=== PATIENT | female | born 1970 | race Two or more races ===

== ENCOUNTER → 2016-11-27 | Day surgery (SDC) | payer OTHER ==
[2016-11-27] VITALS (7 sets, daily range): BP systolic 104–135; BP diastolic 56–80
[~2016-11-27] VITALS: Ht 160 cm; Wt 99.8 kg
[~2016-11-27] MED LIST: FLAX OIL1000 MG PO; LR 1000ml 1,000 ML IV SCH; LR 1000ml 1,000 ML IVLG SCH; LR 1000ml ONE; Lidocaine 1% MPF 10mg/ml 5ml ONE; MELATONIN5 M6 PO; OMEPRAZOLE40 M1 ORAL; PHENTERMINE HCL15 MG PO; PROBIOTIC1 EAC2 PO; Propofol 10mg/ml 20ml IV ONE; VITAMIN D1000 UNI1 ORAL
--- NOTE | 2016-11-27 09:05 | Anethesia Preoperative Eval ---
Anesthesia Pre-op PMH/ROS General Date of Evaluation: Nov 27, 2016 Time of Evaluation: 09:02 Anesthesiologist: Mazin ASA Score: ASA 2 Mallampati Score Class I : Soft palate, uvula, fauces, pillars visible Class II: Soft palate, uvula, fauces visible Class III: Soft palate, base of uvula visible Class IV: Only hard plate visible Mallampati Classification: Class II Surgeon: herberth Diagnosis: abdominal pain Surgical Procedure: egd/colonoscopy Anesthesia History: none Family History: no anesthesia problems Allergies: Coded Allergies: ACETAMINOPHEN (Verified Allergy, Intermediate, 11/27/16) ITCHY HYDROCODONE (Verified Allergy, Intermediate, 11/27/16) ITCHY LATEX (Verified Allergy, Mild, 11/27/16) SKIN RASH BENZONATATE (Unverified Allergy, Unknown, 11/27/16) DOXYCYCLINE (Unverified Allergy, Unknown, 11/27/16) Uncoded Allergies: DOXYCYC (Allergy, Severe, 11/27/16) SKIN RASH TESSALON (Allergy, Severe, 11/27/16) ANAPHYLACTIC SHOCK HUMMUS (Allergy, Intermediate, 11/27/16) SKIN RASH Past Medical History Cardiovascular: Denies: CAD, HTN, NE, arrhythmia, other, valve dz Pulmonary: Reports: DONALD Gastrointestinal/Genitourinary: Reports: GERD Neurologic/Psychiatric: Denies: CVA, TIA, dementia, depression/anxiety, other Endocrine: Denies: DM, hypothyroidism, other, steroids HEENT: Denies: INAJA (L), INAJA (R), cataract (L), cataract (R), glaucoma, other Hematology/Immune: Denies: DVT, anemia, bleeding disorder, other Musculoskeletal/Integumentary: Denies: DDD, DJD, OA, RA, edema, other Other: obesity PMH Narrative: GERD, obesity, anxiety PSxH Narrative: NIKHIL, c/s/, inguinal hernia repair Anesthesia Pre-op Phys. Exam Physician Exam Last Vital Signs Date Time Temp Pulse Resp B/P Pulse Ox O2 Delivery O2 Flow Rate FiO2 11/27/16 07:48 98.4 96 20 135/56 98 Room Air Constitutional: NAD Neurologic: CN 2-12 intact Cardiovascular: RRR Respiratory: CTA Gastrointestinal: S/NT/ND Airway Exam Mallampati Score: Class II MO: full ROM: full Teeth: intact Dentures: no lower, no upper CARLOS A GRAHAM D.O. Nov 27, 2016 09:05
--- NOTE | 2016-11-27 09:06 | Short Stay Surgery H&P ---
History of Present Illness History of Present Illness Chief Complaint Abdominal pains and rectal bleeding. KALEB Mathews is a 45 year old female who was admitted on for Abdominal Pain and rectal bleeding. Patient History Allergies: Coded Allergies: ACETAMINOPHEN (Verified Allergy, Intermediate, 11/27/16) ITCHY HYDROCODONE (Verified Allergy, Intermediate, 11/27/16) ITCHY LATEX (Verified Allergy, Mild, 11/27/16) SKIN RASH BENZONATATE (Unverified Allergy, Unknown, 11/27/16) DOXYCYCLINE (Unverified Allergy, Unknown, 11/27/16) Uncoded Allergies: DOXYCYC (Allergy, Severe, 11/27/16) SKIN RASH TESSALON (Allergy, Severe, 11/27/16) ANAPHYLACTIC SHOCK HUMMUS (Allergy, Intermediate, 11/27/16) SKIN RASH PAST MEDICAL HISTORY: (1) Hyperlipidemia Past Surgeries: (1) H/O abdominal hysterectomy (2) Fissure in ano (3) Hernia (4) Previous section Social History: Medication History Scheduled Cholecalciferol (Vitamin D3)* (Vitamin D*), 10,000 UNITS ORAL DAILY, (Reported) Flaxseed Oil (Flax Oil), 1,000 MG PO DA, (Reported) Lactobacillus Acidophilus (Probiotic), 1 EACH PO DA, (Reported) Melatonin (Melatonin), 5 MG PO NEEDED, (Reported) Omeprazole (Omeprazole), 40 MG ORAL DAILY, (Reported) Phentermine Hcl (Phentermine Hcl), 15 MG PO DA, (Reported) Review of Systems Cardiovascular: Reports: no symptoms Respiratory: Reports: sleep apnea Skeletal: Reports: other Gastrointestinal: Reports: gastro esophageal reflux disease Genitourinary: Reports: no symptoms Neurologic: Reports: no symptoms Endocrine: Reports: no symptoms Hematologic: Reports: no symptoms Physical Exam Vital Signs Last Vital Signs Date Time Temp Pulse Resp B/P Pulse Ox O2 Delivery O2 Flow Rate FiO2 11/27/16 07:48 98.4 96 20 135/56 98 Room Air Skin: normal HENT: normal Heart: normal Lungs: normal Abdomen: abnormal Extremities: normal Genitourinary: normal Plan Plan of Care Upper and lower GI endoscopy Preop Interventions None. Summary of Findings See the reports Final Diagnosis: Attestation Are the patient's medical conditions optimized for surgery? Attestation Response: yes KIRSTIN CHAVEZ Nov 27, 2016 09:05
--- NOTE | 2016-11-27 09:07 | Pre-Procedure Note/Attestation ---
Pre-Procedure Note/Attestation Complete Prior to Procedure Planned Procedure: left Procedure Narrative: The endoscopic examination of the upper and the lower GI tract. Indications for Procedure Pre-Operative Diagnosis: R/O Gastritis/peptic ulcer/fissure/hemorrhoids/colitis. Attestation I attest that I discussed the nature of the procedure; its benefits; risks and complications; and alternatives (and the risks and benefits of such alternatives ), prior to the procedure, with the patient (or the patient's legal sales representative cash registers). I attest that, if there was a reasonable possibility of needing a blood transfusion, the patient (or the patient's legal sales representative cash registers) was given the [place] [facility] standardized written summary, pursuant to the Eduardo Bri Blood Safety Act ([place] Health and Safety Code # 1645, as amended). I attest that I re-evaluated the patient just prior to the surgery and that there has been no change in the patient's H&P, except as documented below: SCOTT,SAID Nov 27, 2016 09:07
--- NOTE | 2016-11-27 09:40 | Immediate Post-Op Evaluation ---
Immediate Post-Op Evalulation Immediate Post-Op Evalulation Procedure: EGD with biopsy/colonoscopy Date of Evaluation: Nov 27, 2016 Time of Evaluation: 09:39 IV Fluids: 400ml Blood Products: none Estimated Blood Loss: none Urinary Output: due to void Blood Pressure Systolic: 120 Blood Pressure Diastolic: 65 Pulse Rate: 100 Respiratory Rate: 18 O2 Sat by Pulse Oximetry: 99 Temperature (Fahrenheit): 97 Pain Score (1-10): 0 Nausea: No Vomiting: No Complications none Patient Status: awake, reacts Hydration Status: adequate Drug: n/a Given Within 1 Hr of Incision: CARLOS A Giles D.O. Nov 27, 2016 09:40
--- NOTE | 2016-11-27 09:40 | Endoscopy Procedure Note ---
Endoscopy Procedure Note Indication for Procedure: Abdominal pains and rectal bleeding Procedures Performed: EGD - Completely normal upper GI endoscopy, biopsy was done per random from gastric body., colonoscopy - Extremely redundant colon and adhesions in the pelvic area as the scope could only advanced upto the hepatic felexure with findings of minimal internal hemorrhoids (non-friable) and no anal fissure found, otherwise normal colon upto the hepatic flexure. Specimen: yes Pt Tolerated Procedure Well: Yes Estimated Blood Loss: none Anesthesiologist: Dr. Hernandez Anesthesia: moderate sedation Medication Given: see anesthesia record Implant(s) used?: No 50 yrs or older w/o bx or poly: Yes 10yrs. F/U not recommended: Yes 10 yrs. F/U needed: Yes Med reason:<3 yrs.: System Reason:<3 yrs.: Last colonoscopy >= to 3yrs: Yes KIRSTIN CHAVEZ Nov 27, 2016 09:40
--- NOTE | 2016-11-27 09:42 | Discharge Instructions ---
Discharge Instructions Discharge Instructions Follow up with: see the docotor in office after two weeks. For Congestive Heart Failure Reminder Report to your physician any weight gain of 5 pounds or more in one week. KIRSTIN CHAVEZ Nov 27, 2016 09:42
--- NOTE | 2016-11-27 09:55 | 48 Hour Post Anesthesia Eval ---
Post Anesthesia Evaluation Procedure: EGD with biopsy/colonoscopy Date of Evaluation: Nov 27, 2016 Time of Evaluation: 11:10 Blood Pressure Systolic: 111 0: 58 Pulse Rate: 84 Respiratory Rate: 16 Temperature (Fahrenheit): 98 O2 Sat by Pulse Oximetry: 98 Airway: patent Nausea: No Vomiting: No Pain Intensity: 0 Hydration Status: adequate Cardiopulmonary Status: stable Mental Status/LOC: patient returned to baseline Follow-up Care/Observations: as per GI Post-Anesthesia Complications: none Follow-up care needed: N/A CARLOS A GRAHAM D.O. Nov 27, 2016 09:55
--- NOTE | 2016-11-27 17:28 | Operative Note - Dictated ---
This patient was referred by [facility]. PROCEDURE: Esophagogastroduodenoscopy with biopsy. PREOPERATIVE DIAGNOSES: 1. Abdominal pain. 2. History of nausea and vomiting. POSTOPERATIVE DIAGNOSES: Completely normal upper gastrointestinal endoscopy. Biopsy was taken per random from gastric body. MEDICATION USED: Per Dr. Retana, anesthesiologist. INSTRUMENT: GIF Olympus upper gastrointestinal video endoscope. DESCRIPTION OF PROCEDURE: The patient after arriving endoscopy unit, was told about the risks and benefits of the procedure, which she accepted and signed the informed consent. She was then put on the left lateral decubitus position. After adequate IV sedation, the scope was gently passed through the cricopharyngeal area, was lodged into the upper esophagus, and gradually advanced towards gastroesophageal junction. The entire length of the esophagus looked normal. No evidence of varices, inflammatory process, ulceration, stricture, etc. was found. GE junction also looked normal without any evidence of visible hiatal hernia or Griffin's. At this time, the scope was advanced into the stomach. Gastric cavity was distended. The areas of the fundus and the body and the antrum were examined in an supervisor frame sample and pattern fashion with a retroflexion maneuver as well, which did not reveal any abnormality. At this time, one random biopsy from gastric body was obtained and subsequently, the scope was passed through the antrum and into normal-looking pylorus. First and second portion of duodenum were also found to be completely normal. Finally, scope was pulled out and the procedure was terminated. The patient tolerated the procedure well. Said Charla Rocha DR: RANDALL JOB#: [id number] CC:
--- NOTE | 2016-11-27 17:38 | Operative Note - Dictated ---
The patient is referred by [facility]. PROCEDURE: Total colonoscopy. PREOPERATIVE DIAGNOSES: 1. Rectal bleeding. 2. Abdominal pain. 3. History of hemorrhoids. POSTOPERATIVE DIAGNOSIS: Examination was done up to hepatic flexure due to excessive adhesions in the pelvis and redundancy of the colon, otherwise completely normal study except minimal internal hemorrhoids, which were not friable. There was no evidence of anal fissure. ANESTHESIA: Done by Dr. Retana. INSTRUMENT: GIF Olympus videocolonoscope. DESCRIPTION OF PROCEDURE: The patient after arriving endoscopy unit, was told about risks and benefits of the procedure, which she accepted and signed the informed consent. At this time, the scope was gently passed through the anal area and careful examination of this section did not reveal any major hemorrhoids or friability or inflammatory process except minimal internal hemorrhoids of no great significance. The retroflexion maneuver was also applied here, which did not reveal any other abnormalities other than what was stated earlier. The scope was then passed through highly redundant colon, which was very difficult to pass through and multiple maneuvers had to be done and finally, scope was passed through this area, which seemed to be involved in the external adhesive process due to prior surgery. Finally, the scope reached to the splenic flexure and from there into transverse colon all the way to the hepatic flexure. All these areas were completely normal. Numerous attempts were done to pass the scope beyond the hepatic flexure, which was not successful. Even the patient was put on a supine position and multiple pressure over the abdominal wall did not produce any advancement of the scope beyond the hepatic flexure. At this point, it was felt that the applicant did have significant adhesions in the pelvic area, which was not allowing the scope to pass through the hepatic flexure as well. Finally, the scope was gradually pulled out within 5 minutes. No other abnormalities were found. The colon cleanup was also adequate. The patient tolerated the procedure well and left the endoscopy room in a good condition. Said Charla Rocha DR: RANDALL JOB#: [id number] CC:
--- NOTE | 2016-11-27 18:58 | Pre-op HX & Phy Repo 2 SIG ---
DATE OF ADMISSION: 11/27/2016 HISTORY: This patient was referred by [facility]. The applicant is a 45-year-old female, who is being seen prior to undergoing the procedures of upper and lower GI endoscopy for which, she has been scheduled to receive for evaluation of her GI symptoms that she has been complaining of. The applicant basically reports that she has been experiencing epigastric pain with excessive heartburn and symptoms of nausea vomiting at times. She has also had history of lower abdominal pain with rectal bleeding and diagnosis of anal fissure and hemorrhoids in the past for which, she has been treated surgically for both conditions. The patient was working at [employer], as she was hired in 2012 and she reported that she was under significant stress at the job site as well. She has had episodes of diarrhea and vomiting for which she was seen in the clinic and by different physicians and diagnosed to have internal hemorrhoid as well. She was also seen by psychological evaluators and received Cymbalta in medications. The patient's last job was in [employer]. She worked on a computer project. She reported she was negative for Helicobacter infection by a test that they have done. She also had diagnosis of a small hiatal hernia found on the CT scan in the past. The patient has received ventral and umbilical hernia repair as well. The patient also does have history of lower back pain and has received adequate treatment with physical therapy as well. She has had history of diagnosis for hemorrhoid and fissure and the repair has been done by a Dr. Rowe. As I mentioned, the patient has been treated with anti-inflammatory medications for the pain, as she started to have heartburn. This was diagnosed to be consistent with gastroesophageal reflux and she received Zantac. She has also been diagnosed in the past to have irritable bowel syndrome. PAST MEDICAL HISTORY: Possible hyperlipidemia. MEDICATIONS: List of present medications are basically famotidine 20 mg b.i.d. SURGERIES: C-sections, hernia operation, hysterectomy, fissure surgery, and hemorrhoid surgery. HABITS: She does not smoke or drinks. In the past, she used to smoke. REVIEW OF SYSTEMS: Basically history of present illness. PHYSICAL EXAMINATION: GENERAL: The patient is an alert and well-oriented female, does not seem to be in acute distress. She looks well developed and obese. Answers the questions quite properly. VITAL SIGNS: Stable. HEENT: Normocephalic. Pupils are equal in size and reactive to light and accommodation. No jaundice. NECK: Supple. No JVD, thyromegaly, or adenopathy. CHEST: Clear to auscultation and percussion. No rales or rhonchi. HEART: S1 and S2 normal. Regular rhythm. No gallops or murmur. ABDOMEN: Soft, but tender . There is no organomegaly. No mass was found. No percussion tenderness. EXTREMITIES: Unremarkable. PRELIMINARY IMPRESSION: 1. Abdominal pain, of uncertain etiology. Epigastric pain, possibly secondary to side effects of nonsteroidal anti-inflammatory agents and gastroesophageal reflux, rule out peptic ulcer disease with a history of underlying hiatal hernia. 2. History of rectal bleeding and anal fissure and hemorrhoids. 3. Generalized abdominal pain, possibly consistent with irritable bowel syndrome. RECOMMENDATIONS: At this time, the patient seems to be stable to undergo the procedures of upper and lower GI endoscopy. She understand the risks and benefits and will sign the consent. Said Charla Rocha DR: SMITA JOB#: [id number] CC:
== END | disposition home or self-care (01) ==
LOC: GAS 06:55
DX: R10.84 Generalized abdominal pain (principal); K62.5 Hemorrhage of anus and rectum; K64.8 Other hemorrhoids; Q43.8 Other specified congenital malformations of intestine; E78.5 Hyperlipidemia, unspecified; G47.33 Obstructive sleep apnea (adult) (pediatric); E66.9 Obesity, unspecified; G47.30 Sleep apnea, unspecified; K21.9 Gastro-esophageal reflux disease without esophagitis; F41.9 Anxiety disorder, unspecified; Z88.8 Allergy status to other drugs, medicaments and biological substances; Z88.6 Allergy status to analgesic agent; Z88.5 Allergy status to narcotic agent; Z91.040 Latex allergy status; Z88.3 Allergy status to other anti-infective agents; Z91.018 Allergy to other foods
CPT/HCPCS: 43239; 45378; J2704; J7120; 94003; 94150